=== PATIENT | female | born 1985 | race Caucasian/White ===

== ENCOUNTER 2021-03-08 23:46 | Emergency (ER) | payer SELFPAY ==
[~2021-03-08] VITALS: Ht 157.5 cm; Wt 90.7 kg
[2021-03-09 00:16] LABS: BASOPHILS ABSOLUTE AUTO 0.04 K/mm3 (0.00-0.23); BASOPHILS PERCENT AUTO 1 % (0-2); EOSINOPHILS ABSOLUTE AUTO 0.13 K/mm3 (0.00-0.68); EOSINOPHILS PERCENT AUTO 2 % (0-6); Hematocrit 37.2 % (33.0-51.0); Hemoglobin 12.4 g/dL (11.5-16.0); IMMATURE GRAN ABSOLUTE AUTO 0.03 K/mm3 (0.00-0.10); IMMATURE GRAN PERCENT AUTO 0 % (0-1); LYMPHOCYTES ABSOLUTE AUTO 1.81 K/mm3 (0.84-5.20); LYMPHOCYTES PERCENT AUTO 22 % (21-46); MONOCYTES ABSOLUTE AUTO 0.89 K/mm3 (0.16-1.47); MONOCYTES PERCENT AUTO 11 % (4-13); Mean Corpuscular HGB 31.4 pg (26.0-34.0); Mean Corpuscular HGB Conc 33.3 g/dL (31.5-36.5); Mean Corpuscular Volume 94 fL (80-100); Mean Platelet Volume 11.9 fL (9.1-12.4); NEUTROPHILS ABSOLUTE AUTO 5.19 K/mm3 (1.96-9.15); NEUTROPHILS PERCENT AUTO 64 % (41-73); Platelet Count 184 K/mm3 (150-400); RDW Coefficient Variation 11.8 % (11.7-14.2); Red Blood Cell Count 3.95 M/mm3 (3.80-5.20); White Blood Cell Count 8.09 K/mm3 (4.00-11.30)
[2021-03-09 00:32] LABS: Anion Gap 11 mmol/L (6-16); Blood Urea Nitrogen 23 mg/dL (8-24); Bun/Creatinine Ratio 29.8 (12.0-20.0); CO2, Blood 18 mmol/L (21-32); Calcium, Blood 8.8 mg/dL (8.5-10.1); Chloride, Blood 111 mmol/L (98-108); Creatinine, Blood 0.77 mg/dL (0.40-1.00); Glomerular Filtration Rate >60 (60-); Glucose, Blood 91 mg/dL (70-99); Potassium, Blood 3.9 mmol/L (3.5-5.5); Sodium, Blood 140 mmol/L (136-145); Troponin I <0.015 ng/mL (0.000-0.040)
== END 2021-03-09 03:12 | disposition home or self-care (01) ==
LOC: ER 23:46
PROVIDERS: Student in an Organized Health Care Education/Training Program
DX: R07.9 Chest pain, unspecified (principal); F17.200 Nicotine dependence, unspecified, uncomplicated
CPT/HCPCS: 71045; 80048; 84484; 85025; 93005; 93010; 96374; 99285-25; A9270; J1885

== ENCOUNTER 2021-03-09 18:43 | Emergency (ER) | payer SELFPAY ==
[~2021-03-09] VITALS: Ht 154.9 cm; Wt 90.7 kg
== END 2021-03-09 20:33 | disposition home or self-care (01) ==
LOC: ER 18:43
DX: Z00.00 Encounter for general adult medical examination without abnormal findings (principal); Z59.00 Homelessness unspecified; F17.200 Nicotine dependence, unspecified, uncomplicated
CPT/HCPCS: 99284; A9270

== ENCOUNTER 2021-03-10 21:54 | Emergency (ER) | payer SELFPAY ==
[~2021-03-10] VITALS: Ht 162.6 cm; Wt 68.0 kg
== END 2021-03-10 22:24 | disposition home or self-care (01) ==
LOC: ER 21:54
DX: F41.9 Anxiety disorder, unspecified (principal); R45.1 Restlessness and agitation; F17.200 Nicotine dependence, unspecified, uncomplicated
CPT/HCPCS: 99283; A9270

== ENCOUNTER 2022-10-24 20:03 | Emergency (ER) | payer SELFPAY ==
[~2022-10-24] VITALS: Ht 160 cm; Wt 66.2 kg
[~2022-10-24 20:03] MED LIST: SULTRISS PO
[2022-10-24] MEDS ORDERED: LORA.5 PO (22:33)
[2022-10-25 00:10] VITALS: BP 104/62
== END 2022-10-25 00:28 | disposition home or self-care (01) ==
LOC: ER 20:03
DX: F41.9 Anxiety disorder, unspecified (principal); F17.200 Nicotine dependence, unspecified, uncomplicated
CPT/HCPCS: 99283; A9270

== ENCOUNTER 2023-03-17 16:10 | Emergency (ER) | payer OTHER ==
[~2023-03-17] VITALS: Ht 154.9 cm; Wt 79.4 kg
[~2023-03-17 16:10] MED LIST changes: +Bactrim Ds Tab1 EACH PO; +Cephalexin500 M1 PO; +HYDHCL25 PO; +LORA.5 PO; +NITR100CA PO; +TRAZ50 PO
[2023-03-17 16:23] VITALS: BP 121/82
[2023-03-18] MEDS ORDERED: Prozac20 MG PO (13:39)
[2023-03-18] MEDS ORDERED: DIVA500ER PO (13:39)
[2023-03-18] MEDS ORDERED: GABA300 PO (13:39)
[2023-03-18] MEDS ORDERED: Klonopin1 MG PO (13:39)
[2023-03-18] MEDS ORDERED: RISP2 PO (13:39)
== END 2023-03-17 18:57 | disposition left against medical advice (07) ==
LOC: ER 16:10
DX: F17.210 Nicotine dependence, cigarettes, uncomplicated (principal); Z53.29 Procedure and treatment not carried out because of patient's decision for other reasons; Z76.0 Encounter for issue of repeat prescription
CPT/HCPCS: 99281

== ENCOUNTER 2023-03-18 13:23 | Emergency (ER) | payer OTHER ==
[~2023-03-18] VITALS: Ht 167.6 cm; Wt 81.7 kg
[2023-03-18 13:33] VITALS: BP 142/93
[2023-03-18] MEDS ORDERED: Klonopin1 MG PO (13:39)
[2023-03-18] MEDS ORDERED: DIVA500ER PO (13:39)
[2023-03-18] MEDS ORDERED: GABA300 PO (13:39)
[2023-03-18] MEDS ORDERED: Prozac20 MG PO (13:39)
[2023-03-18] MEDS ORDERED: RISP2 PO (13:39)
== END 2023-03-18 14:07 | disposition home or self-care (01) ==
LOC: ER 13:23
DX: Z76.0 Encounter for issue of repeat prescription (principal); F32.A Depression, unspecified; F41.9 Anxiety disorder, unspecified; F17.200 Nicotine dependence, unspecified, uncomplicated; Z79.899 Other long term (current) drug therapy
CPT/HCPCS: 99282; A9270

== ENCOUNTER 2023-03-19 19:54 | Observation (INO) | payer OTHER ==
[~2023-03-19] VITALS: Ht 162.6 cm; Wt 86.2 kg
[~2023-03-19 19:54] MED LIST changes: +DIVA500ER PO; +GABA300 PO; +Klonopin1 MG PO; +Prozac20 MG PO; +RISP2 PO
[2023-03-19 20:49] LABS: Source, Urine Clean Catch
[2023-03-19 21:00] LABS: BASOPHILS ABSOLUTE AUTO 0.03 K/mm3 (0.00-0.23); BASOPHILS PERCENT AUTO 1 % (0-2); EOSINOPHILS ABSOLUTE AUTO 0.28 K/mm3 (0.00-0.68); EOSINOPHILS PERCENT AUTO 4 % (0-6); Hematocrit 38.5 % (33.0-51.0); Hemoglobin 12.9 g/dL (11.5-16.0); IMMATURE GRAN ABSOLUTE AUTO 0.03 K/mm3 (0.00-0.10); IMMATURE GRAN PERCENT AUTO 1 % (0-1); LYMPHOCYTES ABSOLUTE AUTO 1.77 K/mm3 (0.84-5.20); LYMPHOCYTES PERCENT AUTO 27 % (21-46); MONOCYTES ABSOLUTE AUTO 1.12 K/mm3 (0.16-1.47); MONOCYTES PERCENT AUTO 17 % (4-13); Mean Corpuscular HGB 31.2 pg (26.0-34.0); Mean Corpuscular HGB Conc 33.5 g/dL (31.5-36.5); Mean Corpuscular Volume 93 fL (80-100); NEUTROPHILS ABSOLUTE AUTO 3.29 K/mm3 (1.96-9.15); NEUTROPHILS PERCENT AUTO 50 % (41-73); Platelet Count 167 K/mm3 (150-400); RDW Coefficient Variation 12.6 % (11.7-14.2); RDW Standard Deviation 42.9 fL (35.1-46.3); Red Blood Cell Count 4.14 M/mm3 (3.80-5.20); White Blood Cell Count 6.52 K/mm3 (4.00-11.30)
[2023-03-19 21:19] LABS: Ethanol (Alcohol), Blood, Med <3 mg/dL; Salicylate 4.8 mg/dL (2.8-20.0)
[2023-03-19 21:21] LABS: U Amphetamine Screen Not Detected; U Barbituate Screen Not Detected; U Benzodiazapine Screen Not Detected; U Buprenorphine Screen Not Detected; U Cannabinoids Screen Not Detected; U Cocaine Screen Not Detected; U Methadone Screen Not Detected; U Methamphetamine Screen Not Detected; U Opiates Screen Not Detected; U Oxycodone Screen Not Detected; U Phencyclidine Screen Not Detected
[2023-03-19 21:31] LABS: Bilirubin, Urine Neg (Neg); Blood, Urine Neg (Neg); Glucose Qualitative, Urine Neg (Neg); Ketones, Urine 1+ (Neg); Leukocyte Esterase, Urine 3+ (Neg); Nitrite, Urine Neg (Neg); Protein, Urine Neg (Neg); Urobilinogen, Urine NORM (Normal)
[2023-03-19 21:33] LABS: Acetaminophen, Random <2.0 ug/mL (10.0-30.0); Alanine Aminotransfer (ALT/SGP 19 U/L (12-78); Albumin, Blood 3.4 g/dL (3.4-5.0); Alk Phos 39 U/L (50-136); Anion Gap 3 mmol/L (6-16); Aspartate Aminotrans (AST/SGOT 20 U/L (12-37); Bilirubin, Total 0.1 mg/dL (0.1-1.0); Blood Urea Nitrogen 21 mg/dL (8-24); Bun/Creatinine Ratio 24.8 (12.0-20.0); CO2, Blood 28 mmol/L (21-32); Calcium, Blood 8.6 mg/dL (8.5-10.1); Chloride, Blood 110 mmol/L (98-108); Creatinine, Blood 0.85 mg/dL (0.40-1.00); Globulin, Blood 3.3 g/dL (2.2-4.0); Glomerular Filtration Rate 89 (60-); Glucose, Blood 80 mg/dL (70-99); Potassium, Blood 4.2 mmol/L (3.5-5.5); Sodium, Blood 141 mmol/L (136-145); Total Protein, Blood 6.7 g/dL (6.4-8.2)
[2023-03-19 21:45] LABS: Appearance, Urine Hazy (Clear); Color, Urine Yellow (P-Yellow)
[2023-03-19 21:47] LABS: Bacteria Mod /hpf; Red Blood Cells, Urine Not Seen /hpf (0-2); Squamous Epithelial Cells Mod /hpf (Few); Trichomonas Few /hpf
[2023-03-19 22:35] LABS: Valproic Acid 86.8 ug/mL (50.0-100.0)
[2023-03-24 07:58] VITALS: BP 111/77
[2023-03-24] MEDS ORDERED: DIVA500EC PO (15:18)
[2023-03-24] MEDS ORDERED: CHLO100 PO (15:18)
== END 2023-03-24 16:03 | disposition home or self-care (01) ==
LOC: ER 19:54 → EOR 19:55
PROVIDERS: Physician Assistant; ADMIT Emergency Medicine
DX: F29 Unspecified psychosis not due to a substance or known physiological condition (principal); F15.20 Other stimulant dependence, uncomplicated; F17.200 Nicotine dependence, unspecified, uncomplicated; Z79.899 Other long term (current) drug therapy
CPT/HCPCS: 36415; 80053; 80164; 81001; 81025; 85025; 86592; 87086; 99285; A9270; G0378; G0480